=== PATIENT | male | born 1960 | race Caucasian/White ===

== ENCOUNTER → 2018-08-10 | Outpatient (CLI) | payer OTHER ==
--- NOTE | 2018-08-10 12:32 | KCIC ---
Three-view left knee dated 08/10/2018. No comparison available. Clinical data indication: Pain since Monday. FINDINGS: 3 views left knee show normal bony alignment. No displaced fracture. No acute osseous or articular abnormality. Possible small joint effusion. No loose body. IMPRESSION: 1. No acute radiographic abnormality. 2. Possible small joint effusion. Electronically signed by: Juno Kelly MD (08/10/2018 12:27 PM) [id number]
== END | disposition home or self-care (01) ==
LOC: KCIC 10:12
PROVIDERS: ATTEND Physician Assistant Medical
DX: S89.92XA Unspecified injury of left lower leg, initial encounter (principal); X58.XXXA Exposure to other specified factors, initial encounter; Y93.89 Activity, other specified; Y92.89 Other specified places as the place of occurrence of the external cause; Y99.8 Other external cause status
CPT/HCPCS: 73562

== ENCOUNTER → 2018-09-13 | Outpatient (CLI) | payer OTHER ==
--- NOTE | 2018-09-13 16:34 | KCIC ---
MR of the left knee HISTORY: Left knee pain after hyperextension injury. Pain he. TECHNIQUE: Routine multiplanar sequences are obtained. FINDINGS: Moderate motion degradation. Full-thickness radial tear at the posterior root attachment of the medial meniscus with medial subluxation. No evidence of lateral meniscal tear. Anterior and posterior cruciate ligaments are intact. Medial collateral ligament intact. Iliotibial band unremarkable. Fibular collateral ligament, biceps femoris tendon and popliteus tendon are intact. The extensor mechanism is intact. Small joint effusion. Moderate chondral thinning at the posterior lateral tibial plateau. Moderate thinning of the medial compartment articular cartilage. Mild patellofemoral joint chondromalacia. Subcutaneous edema along the anterior knee. Trace Umanzor's cyst. No aggressive bone destruction or acute fracture. IMPRESSION: 1. Tear at the posterior root of the medial meniscus, with subluxation. 2. Primary osteoarthritis. Electronically signed by: Juno Dejesus MD (09/13/2018 4:31 PM) [id number]
== END | disposition home or self-care (01) ==
LOC: KCIC MRI 12:52
PROVIDERS: ATTEND Physician Assistant Medical
DX: S83.242A Other tear of medial meniscus, current injury, left knee, initial encounter (principal); S83.192A Other subluxation of left knee, initial encounter; M17.12 Unilateral primary osteoarthritis, left knee; M22.42 Chondromalacia patellae, left knee; M25.462 Effusion, left knee; R60.0 Localized edema; X58.XXXA Exposure to other specified factors, initial encounter; Y93.89 Activity, other specified; Y92.89 Other specified places as the place of occurrence of the external cause; Y99.8 Other external cause status
CPT/HCPCS: 73721